=== PATIENT | male | born 1950 | race Caucasian/White ===

== ENCOUNTER 2022-12-03 16:50 | Emergency (ER) | payer MEDICARE, OTHER ==
[~2022-12-03] VITALS: Ht 182.9 cm; Wt 98.6 kg
[2022-12-03 18:33] LABS: BASOPHILS % (AUTO) 0.1 % (0-1); EOSINOPHILS % (AUTO) 0.3 % (0-6); HEMATOCRIT 39.4 % (42.0-52.0); HEMOGLOBIN 13.3 g/dl (14.0-17.9); LYMPHOCYTES # (AUTO) 0.6 X10'3 (1.1-4.8); LYMPHOCYTES % (AUTO) 5.7 % (21-51); MEAN CORPUSCULAR HGB CONC 33.9 g/dL (33.0-36.5); MEAN CORPUSCULAR VOLUME 88.5 FL (78-98); MEAN PLATELET VOLUME 7.1 FL (7.4-10.4); MONOCYTES # (AUTO) 0.9 X10'3 (0-0.9); MONOCYTES % (AUTO) 8.4 % (2-12); NEUTROPHILS # (AUTO) 9.1 X10'3 (1.8-7.7); NEUTROPHILS % (AUTO) 85.5 % (42-75); PLATELET COUNT 286 X10'3 (140-440); RED BLOOD COUNT 4.45 X10'6 (4.70-6.10); RED CELL DISTRIBUTION WIDTH 15.5 % (11.5-14.5); WHITE BLOOD COUNT 10.6 X10'3 (4.5-11.0)
[2022-12-03 18:47] LABS: ALANINE AMINOTRANSFERASE 20 U/L (12-78); ALBUMIN 3.4 G/DL (3.4-5.0); ALBUMIN/GLOBULIN RATIO 0.8 (1.1-1.5); ALKALINE PHOSPHATASE 90 IU/L (46-116); ANION GAP 8 (8-16); ASPARTATE AMINO TRANSFERASE 17 U/L (10-37); BILIRUBIN,TOTAL 2.1 MG/DL (0.1-1.0); BLOOD UREA NITROGEN 16 MG/DL (7-18); BUN/CREATININE RATIO 13.1 (5.4-32.0); CALCIUM 9.2 MG/DL (8.5-10.1); CHLORIDE 101 MMOL/L (99-107); CREATININE 1.22 MG/DL (0.60-1.10); GLUCOSE 177 MG/DL (70-104); MAGNESIUM 2.1 MG/DL (1.5-2.4); POTASSIUM 3.9 MMOL/L (3.5-5.1); SODIUM 134 MMOL/L (135-145); TOTAL CARBON DIOXIDE 25.5 MMOL/L (24-32); TOTAL PROTEIN 7.9 G/DL (6.4-8.2); eGFR 58 ML/MIN
[2022-12-03 18:59] LABS: C-REACTIVE PROTEIN 19.44 MG/DL (0.0-0.5)
[2022-12-03 19:43] VITALS: BP 143/58
[2022-12-03] MEDS ORDERED: DILT-35 PO (19:43)
[2022-12-03] MEDS ORDERED: MONT10TA21 PO (19:43)
[2022-12-03] MEDS ORDERED: ATOR40TA71 PO (19:43)
[2022-12-03 19:47] LABS: CLARITY,URINE SLIGHTLY CLOUDY (Clear); GLUCOSE, URINE 100 mg/dl (Neg); KETONES,URINE TRACE mg/dl (Neg); LEUKOCYTE ESTERASE ,URINE NEGATIVE (Neg); NITRITES, URINE NEGATIVE (Neg); OCCULT BLOOD,URINE NEGATIVE (Neg); PROTEIN,URINE 30 mg/dl (Neg)
[2022-12-03 19:51] LABS: COLOR,URINE DARK YELLOW (Yellow); UA COLLECTION TYPE URINAL
[2022-12-03 19:54] LABS: BACTERIA,URINE FEW /HPF (Neg); CAL OXALATE CRYSTALS 4+ /HPF (NEGATIVE); RBC,URINE 0-2 /HPF (0-2); SQUAMOUS EPITHELIAL CELL,UR FEW /LPF (FEW); TRANSITIONAL EPI CELLS,URINE FEW /HPF; WBC,URINE 0-4 /HPF (0-4)
[2022-12-03 19:56] LABS: FINE GRANULAR CAST 0-3 /LPF (NEGATIVE)
--- NOTE | 2022-12-03 23:57 | NUR ---
REPORT CALLED TO [facility] GREGORY BHAKTA AWAITING REACH TRANSPORT
[2022-12-04] MEDS ORDERED: diphenhydrAMINE 25mg capsule PO ONE (00:15)
--- NOTE | 2022-12-04 01:12 | NUR ---
REACH TX AT BEDSIDE. REPORT GIVEN
--- NOTE | 2022-12-04 01:39 | NUR ---
[facility] [place] CALLED AUN UPDATED TX INFO. PT IN ROUT.
== END 2022-12-04 01:40 | disposition short-term general hospital (02) ==
LOC: ER 16:51
DX: M00.9 Pyogenic arthritis, unspecified (principal); Z20.822 Contact with and (suspected) exposure to COVID-19; M25.561 Pain in right knee; Z79.899 Other long term (current) drug therapy
CPT/HCPCS: 36415; 73560; 80053; 81001; 83605; 83735; 84145; 85025; 85651; 86140; 87040; 87077; 87186; 87811; 99285; Q0163; 99284; A6449

== ENCOUNTER 2024-07-21 09:27 | Day surgery (SDC) | payer MEDICARE, OTHER ==
[2024-07-17 09:29] LABS: BASOPHILS # (AUTO) 0.1 X10'3 (0-0.2); BASOPHILS % (AUTO) 1.2 % (0-1); EOSINOPHILS # (AUTO) 0.2 X10'3 (0-0.9); EOSINOPHILS % (AUTO) 3.8 % (0-6); HEMATOCRIT 40.2 % (42.0-52.0); HEMOGLOBIN 13.3 g/dl (14.0-17.9); LYMPHOCYTES # (AUTO) 1.4 X10'3 (1.1-4.8); LYMPHOCYTES % (AUTO) 26.7 % (21-51); MEAN CORPUSCULAR HGB CONC 33.1 g/dL (33.0-36.5); MEAN CORPUSCULAR VOLUME 87.7 FL (78-98); MEAN PLATELET VOLUME 6.8 FL (7.4-10.4); MONOCYTES # (AUTO) 0.4 X10'3 (0-0.9); NEUTROPHILS # (AUTO) 3.1 X10'3 (1.8-7.7); NEUTROPHILS % (AUTO) 60.3 % (42-75); PLATELET COUNT 275 X10'3 (140-440); RED BLOOD COUNT 4.58 X10'6 (4.70-6.10); RED CELL DISTRIBUTION WIDTH 15.5 % (11.5-14.5); WHITE BLOOD COUNT 5.1 X10'3 (4.5-11.0)
[2024-07-17 09:45] LABS: APTT 26 SECONDS (22-32); PROTHROMBIN TIME 10.8 SECONDS (9.0-12.0)
[2024-07-17 09:49] LABS: ALBUMIN 3.5 G/DL (3.4-5.0); ANION GAP 8 (8-16); BLOOD UREA NITROGEN 23 MG/DL (7-18); BUN/CREATININE RATIO 27.7 (10.0-20.0); CALCIUM 9.1 MG/DL (8.5-10.1); CHLORIDE 104 MMOL/L (99-107); CHOL/HDL RATIO 1.8 (0.00-4.99); CHOLESTEROL 114 MG/DL (0-200); CREATININE 0.83 MG/DL (0.60-1.10); GLUCOSE 108 MG/DL (70-104); HDL CHOLESTEROL 65 MG/DL (35-60); LDL CHOLESTEROL 46 MG/DL (50-100); SODIUM 139 MMOL/L (135-145); TOTAL CARBON DIOXIDE 27.2 MMOL/L (24-32); TRIGLYCERIDES 33 MG/DL (20-135); eGFR 90 ML/MIN
[~2024-07-21] VITALS: Ht 182.9 cm; Wt 103.4 kg
[2024-07-21] VITALS (8 sets, daily range): BP systolic 127–146; BP diastolic 53–84; PULSE 48–74; RESP 14–16; TEMP 97.9; O2SAT 95–97
[~2024-07-21 09:27] MED LIST: ATOR40TA71 PO; DILT-35 PO; MONT-47 PO
[2024-07-21] MEDS ORDERED: DILT120C88 PO (09:45)
[2024-07-21] MEDS ORDERED: DOXY100T2 PO (09:46)
[2024-07-21] MEDS ORDERED: LORazepam 0.5 MG tablet PO PRN (09:50)
[2024-07-21] MEDS: normal saline 1,000 ML IV SCH (10:48)
[2024-07-21] MEDS: diphenhydrAMINE 25mg capsule PO PRN (10:48)
[2024-07-21] MEDS ORDERED: fentaNYL/PF 50MCG/1 ML 2ML syringe ONE (11:46)
[2024-07-21] MEDS ORDERED: verapamil 2.5 mg/ml inj IV ONE (11:46)
[2024-07-21] MEDS ORDERED: midazolam 1 mg/ML 2ml injection ONE (11:46)
[2024-07-21] MEDS ORDERED: heparin 1,000unit/ml 10ml vial 10 ML ONE (11:46)
[2024-07-21] MEDS ORDERED: iohexol 350MG/ML 100ml bottle IV ONE (11:46)
[2024-07-21] MEDS ORDERED: LIDOcaine 1% (10mg/ml) 2ml vial ONE (11:46)
[2024-07-21] MEDS ORDERED: nitroGLYCERIN 500mcg/5mL D5W 5 ML IV ONE (11:48)
[2024-07-21] MEDS ORDERED: HYDROcodone/acetaminophen 5mg/325mg tablet PO PRN (14:50)
[2024-07-21] MEDS ORDERED: HYDROcodone/acetaminophen 10/325mg tab PO PRN (14:50)
[2024-07-22 06:21] LABS: ISTAT HGB ART 11.9 g/dl (14.0-17.9); ISTAT Hct ART 35 %PCV (42-52); ISTAT O2 SATURATION ARTERIAL 95 % (95-98); ISTAT SOURCE BLNK
[2024-07-27 08:27] LABS: ISTAT HGB MIX 12.6 g/dl (14.0-17.9); ISTAT Hct MIX 37 %PCV (42-52); ISTAT O2 SATURATION MIX VENOUS 72 % (60-80); ISTAT SOURCE VEN
== END 2024-07-21 16:30 | disposition home or self-care (01) ==
LOC: SSTAY O 09:27
PROVIDERS: ATTEND Student in an Organized Health Care Education/Training Program
DX: I35.0 Nonrheumatic aortic (valve) stenosis (principal); I25.10 Atherosclerotic heart disease of native coronary artery without angina pectoris; I10 Essential (primary) hypertension; E78.00 Pure hypercholesterolemia, unspecified; Z79.899 Other long term (current) drug therapy
CPT/HCPCS: 36415; 80048; 80061; 82803; 85014; 85025; 85610; 85730; 93005; 93456; 99152; 99153; A6258; A6402; C1751; C1894; J1644; J2001; J2250; J3010; J3490; J7030; Q0163; Q9967; Z7610; 93460

== ENCOUNTER 2024-07-31 10:53 | Outpatient (CLI) | payer MEDICARE, OTHER ==
[~2024-07-31 10:53] MED LIST changes: -DILT-35 PO; +DILT120C88 PO; +DOXY100T2 PO; +IODIXANOL 320 MG/ML INFUS..BTL 100ML IV ONE
[2024-07-31 11:28] LABS: BASOPHILS # (AUTO) 0.1 X10'3 (0-0.2); BASOPHILS % (AUTO) 0.8 % (0-1); EOSINOPHILS # (AUTO) 0.2 X10'3 (0-0.9); EOSINOPHILS % (AUTO) 2.9 % (0-6); HEMATOCRIT 38.6 % (42.0-52.0); HEMOGLOBIN 12.8 g/dl (14.0-17.9); LYMPHOCYTES # (AUTO) 1.2 X10'3 (1.1-4.8); LYMPHOCYTES % (AUTO) 18.1 % (21-51); MEAN CORPUSCULAR HEMOGLOBIN 28.9 PG (27.0-31.0); MEAN CORPUSCULAR HGB CONC 33.2 g/dL (33.0-36.5); MEAN CORPUSCULAR VOLUME 87.1 FL (78-98); MEAN PLATELET VOLUME 6.4 FL (7.4-10.4); MONOCYTES # (AUTO) 0.5 X10'3 (0-0.9); NEUTROPHILS # (AUTO) 4.5 X10'3 (1.8-7.7); NEUTROPHILS % (AUTO) 70.2 % (42-75); PLATELET COUNT 291 X10'3 (140-440); RED BLOOD COUNT 4.44 X10'6 (4.70-6.10); RED CELL DISTRIBUTION WIDTH 15.2 % (11.5-14.5); WHITE BLOOD COUNT 6.5 X10'3 (4.5-11.0)
[2024-07-31 11:34] LABS: APTT 25 SECONDS (22-32); PROTHROMBIN TIME 10.8 SECONDS (9.0-12.0)
[2024-07-31 11:42] LABS: ANION GAP 8 (8-16); BLOOD UREA NITROGEN 17 MG/DL (7-18); BUN/CREATININE RATIO 19.1 (10.0-20.0); CALCIUM 9.1 MG/DL (8.5-10.1); CHLORIDE 106 MMOL/L (99-107); CREATININE 0.89 MG/DL (0.60-1.10); GLUCOSE 112 MG/DL (70-104); POTASSIUM 4.6 MMOL/L (3.5-5.1); SODIUM 140 MMOL/L (135-145); TOTAL CARBON DIOXIDE 26.3 MMOL/L (24-32); eGFR 83 ML/MIN
[2024-07-31 11:43] LABS: ALANINE AMINOTRANSFERASE 22 U/L (12-78); ALBUMIN 3.2 G/DL (3.4-5.0); ALBUMIN/GLOBULIN RATIO 0.7 (1.1-1.5); ALKALINE PHOSPHATASE 93 IU/L (46-116); ASPARTATE AMINO TRANSFERASE 19 U/L (10-37); PRO BRAIN NATRIURETIC PEPTIDE 334 PG/ML (0-450); TOTAL PROTEIN 7.6 G/DL (6.4-8.2)
== END 2024-07-31 23:59 | disposition home or self-care (01) ==
LOC: RAD 10:53
PROVIDERS: ATTEND Internal Medicine Cardiovascular Disease
DX: I35.0 Nonrheumatic aortic (valve) stenosis (principal); R06.02 Shortness of breath; I65.29 Occlusion and stenosis of unspecified carotid artery; K82.0 Obstruction of gallbladder; K42.9 Umbilical hernia without obstruction or gangrene
CPT/HCPCS: 36415; 71046; 71275; 74174; 75572; 80053; 83880; 85025; 85610; 85730; Q9967

== ENCOUNTER 2024-09-15 11:49 | Outpatient (CLI) | payer MEDICARE, OTHER ==
[~2024-09-15 11:49] MED LIST changes: -IODIXANOL 320 MG/ML INFUS..BTL 100ML IV ONE
== END 2024-09-15 23:59 | disposition home or self-care (01) ==
LOC: RAD 11:49
PROVIDERS: ATTEND Family Medicine
DX: S89.91XA Unspecified injury of right lower leg, initial encounter (principal); L03.115 Cellulitis of right lower limb; X58.XXXA Exposure to other specified factors, initial encounter; Y93.89 Activity, other specified; Y92.89 Other specified places as the place of occurrence of the external cause; Y99.8 Other external cause status
CPT/HCPCS: 73700

== ENCOUNTER 2024-10-19 15:24 | Emergency (ER) | payer MEDICARE, OTHER ==
[~2024-10-19] VITALS: Ht 182.9 cm; Wt 104.5 kg
[2024-10-19 15:29] VITALS: TEMP 97.8
[2024-10-19] MEDS ORDERED: adenosine 3mg/ml 2ml vial IV ONE ×2 (16:00)
[2024-10-19] MEDS: adenosine 3mg/ml 2ml vial IV ONE (16:28)
[2024-10-19] MEDS: magnesium sulf-water 2g/50mL 50 ML IV ONE (16:57)
[2024-10-19 18:45] VITALS: BP 148/78; PULSE 65; RESP 18; O2SAT 97
== END 2024-10-19 18:48 | disposition home or self-care (01) ==
LOC: ER 15:24
DX: I47.10 Supraventricular tachycardia, unspecified (principal); Z79.899 Other long term (current) drug therapy
CPT/HCPCS: 71045; 93005; 96365; 99291; J7030

== ENCOUNTER 2025-03-18 05:25 | Inpatient (IN) | payer MEDICARE, OTHER ==
--- NOTE | 2025-03-10 10:57 | ELECTROCARDIOGRAPH REPORT ---
[facility] Test Date: 2025-03-10 Test Time: 10:54:48 Pat Name: JUSTO VIGIL Department: PRE/OP CARDIOLOGY Room: Gender: M Link Trainer: ROSA : 1950 Requested By: MARTA BERRY Order Number: [id number] Reading MD: Dr. Tonny Bales Measurements Intervals [place] Rate: 46 P: 46 [place]: 181 QRS: 18 QRSD: 99 T: 17 QT: 445 QTc: 390 Interpretive Statements Sinus bradycardia Probable anteroseptal infarct, old Electronically Signed On 03-11-2025 9:44:[address] Tonny Bales Please click the below link to view image of tracing.
[2025-03-10 11:41] LABS: BASOPHILS # (AUTO) 0.1 X10'3 (0-0.2); BASOPHILS % (AUTO) 1.3 % (0-1); BILIRUBIN,URINE NEGATIVE (Neg); CLARITY,URINE CLEAR (Clear); COLOR,URINE YELLOW (Yellow); EOSINOPHILS # (AUTO) 0.4 X10'3 (0-0.9); EOSINOPHILS % (AUTO) 8.5 % (0-6); GLUCOSE, URINE NEGATIVE (Neg); KETONES,URINE NEGATIVE (Neg); LEUKOCYTE ESTERASE ,URINE NEGATIVE (Neg); LYMPHOCYTES # (AUTO) 1.6 X10'3 (1.1-4.8); MEAN CORPUSCULAR HEMOGLOBIN 27.2 PG (27.0-31.0); MEAN CORPUSCULAR HGB CONC 33.3 g/dL (33.0-36.5); MEAN CORPUSCULAR VOLUME 81.7 FL (78-98); MEAN PLATELET VOLUME 6.8 FL (7.4-10.4); MONOCYTES # (AUTO) 0.4 X10'3 (0-0.9); MONOCYTES % (AUTO) 9.2 % (2-12); NITRITES, URINE NEGATIVE (Neg); OCCULT BLOOD,URINE NEGATIVE (Neg); PRE OP HEMATOCRIT 38.2 % (42.0-52.0); PRE OP HEMOGLOBIN 12.7 g/dL (14.0-17.9); PRE OP PLATELET COUNT 243 X10'3 (140-440); PRE OP WHITE BLOOD COUNT 4.3 10'3 (4.8-10.8); PROTEIN,URINE NEGATIVE (Neg); RED BLOOD COUNT 4.67 X10'6 (4.70-6.10); RED CELL DISTRIBUTION WIDTH 17.3 % (11.5-14.5); UROBILINOGEN,URINE 0.2 E.U/dL (0.2-1.0)
[2025-03-10 11:45] LABS: UA COLLECTION TYPE NON-SPECIFIED
[2025-03-10 11:59] LABS: PRE OP PROTIME 10.5 SECONDS (9.0-12.0)
--- NOTE | 2025-03-10 12:07 | RADIOLOGY REPORT ---
EXAM: DI CHEST,TWO VIEWS CLINICAL HISTORY: Pain COMPARISON: DI CHEST,TWO VIEWS on DOS: 07/31/24 TECHNIQUE: Frontal and lateral view of the chest was obtained FINDINGS: Lines and Tubes: None Lungs: No focal consolidation. Pleura: No effusion. No pneumothorax. Cardiomediastinal contours: Unremarkable Bones: No acute osseous abnormality. IMPRESSION: No acute cardiopulmonary disease.
[2025-03-10 12:08] LABS: ALBUMIN 3.5 G/DL (3.4-5.0); ALBUMIN/GLOBULIN RATIO 0.9 (1.1-1.5); ALKALINE PHOSPHATASE 137 IU/L (46-116); BLOOD UREA NITROGEN 19 MG/DL (7-18); CALCIUM 8.6 MG/DL (8.5-10.1); CHLORIDE 107 MMOL/L (99-107); PRE OP ALT 30 U/L (30-65); PRE OP ANION GAP 6 (8-16); PRE OP AST 26 U/L (10-37); PRE OP BILIRUB, TOTAL 1.2 MG/DL (0.0-1.0); PRE OP GLUCOSE 107 MG/DL (70-104); PRE OP POTASSIUM 4.5 MMOL/L (3.4-5.1); PRE OP SODIUM 140 MMOL/L (135-145); PRO BRAIN NATRIURETIC PEPTIDE 319 PG/ML (0-450); TOTAL CARBON DIOXIDE 26.6 MMOL/L (24-32); TOTAL PROTEIN 7.3 G/DL (6.4-8.2); eGFR 72 ML/MIN
[~2025-03-18] VITALS: Ht 182.9 cm; Wt 101.4 kg
[2025-03-18] VITALS (28 sets, daily range): BP systolic 126–165; BP diastolic 58–93; PULSE 38–59; RESP 10–20; TEMP 97.4–98.3; O2SAT 94–100
[~2025-03-18 05:25] MED LIST changes: +ALBU8HFA INH; +CALC600T14 PO; +CHOL20004 PO; -DOXY100T2 PO; +FISH1CAP15 PO; +GLUC1CAP36 PO; +LACT1CAP65 PO; +MULT-1085 PO; +TURMERIC PO; +UBID300C3 PO; +VITA1CAP PO; +[UNRECOGNIZED DRUG - CODE] PO
[2025-03-18] MEDS: phenylephrine inj 50 MG in normal saline 250ml IV solN IV SCH (05:30)
[2025-03-18] MEDS: nitroPRUSSIDE (NIPRIDE) (200MCG/ML) 100ML Drip IV SCH (05:30)
[2025-03-18] MEDS ORDERED: ondansetron/PF 4mg/2ml inj IV PRN ×3 (05:30→08:15)
[2025-03-18] MEDS: famotidine 20mg tablet PO ONE (06:12)
[2025-03-18] MEDS: mupirocin 2% nasal ointment 1gm UD NS ONE (06:13)
[2025-03-18] MEDS: VANCOMYCIN/H2O 1.5g/300mL PB 300 ML IV ONE (06:13)
[2025-03-18] MEDS: ceFAZolin 2gm/dext,iso 50mL 50 ML IV ONE (06:14)
[2025-03-18] MEDS: aspirin 325mg tablet PO ONE (06:16)
[2025-03-18] MEDS: ringers solution, lacted 1,000 ML IV SCH ×2 (06:19→07:05)
[2025-03-18] MEDS ORDERED: iohexol 350MG/ML 100ml bottle IV ONE (06:40)
[2025-03-18] MEDS ORDERED: LIDOcaine 1% 30ml preserv. free vial ONE (06:40)
[2025-03-18] MEDS ORDERED: heparin 1,000 UNITS/NS 500ml 500 ML ONE (06:54)
[2025-03-18] MEDS ORDERED: morphine 4 MG/ML inj SYRINge IV PRN (07:05)
[2025-03-18] MEDS ORDERED: hydrALAZINE 20mg/ml inj. IV PRN ×2 (07:05→08:15)
[2025-03-18] MEDS ORDERED: labetalol 20mg/4ml (5mg/ml) syringe IV PRN ×2 (07:05→08:15)
[2025-03-18] MEDS ORDERED: morphine 2 MG/ML inj. syringe IV PRN (07:05)
[2025-03-18] MEDS ORDERED: fentaNYL/PF 50MCG/1 ML 2ML syringe IV PRN ×2 (07:05)
[2025-03-18] MEDS ORDERED: MIDAZolam 1 MG/ML 5ML VIAL ONE (07:12)
[2025-03-18] MEDS ORDERED: fentaNYL/PF 50MCG/1 ML 2ML syringe ONE (07:12)
[2025-03-18] MEDS ORDERED: heparin 1,000unit/ml 10ml vial 10 ML ONE ×2 (07:13→07:50)
[2025-03-18] MEDS ORDERED: propofol inj 20 ML IV ONE (07:13)
[2025-03-18] MEDS ORDERED: LIDOcaine 2% (20mg/ml) 5ml vial ONE (07:13)
[2025-03-18] MEDS ORDERED: non-formulary drug (Ubidecarenone (Co Q-10) 1 CAP) PO SCH (08:00)
[2025-03-18] MEDS ORDERED: [UNRECOGNIZED DRUG - OTHER] PO SCH (08:00)
[2025-03-18] MEDS ORDERED: MAGNESIUM CHLORIDE PO SCH (08:00)
[2025-03-18] MEDS ORDERED: protamine sulfate 10mg/ml inj. ONE (08:09)
[2025-03-18] MEDS ORDERED: docusate sod 100mg capsule PO PRN (08:15)
[2025-03-18] MEDS ORDERED: potassium Cl 40MEQ/270ML bag 250 ML IV PRN (08:15)
[2025-03-18] MEDS ORDERED: ALPRAZolam 0.25mg tablet PO PRN (08:15)
[2025-03-18] MEDS ORDERED: proCHLORperazine 10 MG/2 ml inj IV PRN (08:15)
[2025-03-18] MEDS ORDERED: pantoprazole 40mg Tablet.DR PO PRN (08:15)
[2025-03-18] MEDS ORDERED: acetaminophen 325mg tablet PO PRN (08:15)
[2025-03-18] MEDS ORDERED: potassium Cl 20mEq/100mL bag 100 ML IV PRN (08:15)
[2025-03-18] MEDS ORDERED: HYDROcodone/acetaminophen 5mg/325mg tablet PO PRN (08:15)
[2025-03-18] MEDS ORDERED: diphenhydrAMINE 25mg capsule PO PRN (08:15)
[2025-03-18] MEDS ORDERED: potassium Cl 20 mEq SR tablet PO PRN (08:15)
[2025-03-18] MEDS ORDERED: magnesium sulf-water 4G/100mL 100 ML IV PRN (08:15)
[2025-03-18] MEDS ORDERED: magnesium sulf-water 2g/50mL 50 ML IV PRN (08:15)
[2025-03-18] MEDS ORDERED: potassium CL 10mEq/100ml bag 100 ML IV PRN (08:15)
[2025-03-18] MEDS ORDERED: potassium Cl 40MEQ/1/2NS 520ml 520 ML IV PRN (08:15)
--- NOTE | 2025-03-18 08:20 | OPERATIVE REPORT ---
Operative Report Providers to CC CC: SAYDA CANNON MD ~ Date of Procedure: March 18, 2025 Pre-Operative Diagnosis: Severe Aortic Stenosis Post-Operative Diagnosis SAME as PRE-Op Procedure Performed 1. Ultrasound-guided access, bilateral femoral vessels. 2. Bilateral femoral angiography. 3. Ascending aortography. 4. Temporary transvenous pacer to the RV apex. 5. Placement of a 29 mm Reece S3 Resilia valve. Surgeon: Elise Cannon MD Assembler Handbags MD Dr. 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 They underwent MAC anesthesia. Ultrasound was used to guide access to the bilateral femoral vessels, 7-[place] sheath, left femoral artery, 6-[place] sheath, right femoral artery and left femoral vein. Bilateral femoral angiograms were obtained. Heparin was given to maintain an ACT over 250 seconds. Two crisscross Percloses were placed on the right. We upsized to an 8-[place] sheath. Two pigtail catheters placed in the ascending aorta. Ascending aortography done to determine the angle of deployment. Temporary transvenous pacer to the RV apex and confirmed capture. We upsized an 8-[place] sheath to a 16-[place] Reece eSheath on the right. We crossed the aortic valve using a straight stiff exchange length Terumo wire supported by a 6-[place] AL1 catheter. LV AO pressures were recorded. A Cook extra support wire was placed in the left ventricle. A 29 mm Reece S3 Resilia valve was brought to position and under rapid right ventricular pacing was deployed. Post-procedure, there was no AI and no residual . Guidewires and balloons were removed at this time. The temporary pacer was removed. The 16-[place] Reece eSheath was removed and two crisscross Percloses tied with adequate hemostasis. The arterial sheath on the left was removed and a single Perclose tied. The venous sheath on the left was removed and a single Angioseal used for hemostasis. Protamine was given to reverse the effects of heparin. The patient was stable post-procedure. Good pulses in the legs and no evidence of bleeding, transferred to the PACU in stable condition. HEMODYNAMICS: Pre: LV: 166/7 mmHg LVEDP: 24mmHg Ao: 120/57, MAP 83mmHg Post: LV: 149/1 mmHg LVEDP: 18 mmHg Ao: 149/60, MAP 95mmHg RESULTS: 1. Successful placement of a 29 mm Reece S3 Resilia valve, right transfemoral approach, two perclose devices. ASA 81mg QD 2. Hypertension: Resume home BP meds 3. Chronic diastolic heart failure. LVEDP 24mmHg, pBNP < 450. 4. Hyperlipidemia: Resume home meds They will be watched in the recovery area until stable, then transferred to telemetry at that time. ELISE CANNON MD March 18, 2025 08:20
--- NOTE | 2025-03-18 08:40 | ELECTROCARDIOGRAPH REPORT ---
[facility] Test Date: 2025-03-18 Test Time: 08:33:59 Pat Name: JUSTO VIIGL Department: [facility] Patient ID: [id number] Room: [place] [address] Gender: M Aged Or Disabled Carer: : 1950 Requested By: ELISE FERNÁNDEZ Order Number: [id number] Reading MD: Dr. ERICKSON Arriaga Measurements Intervals [place] Rate: 56 P: 58 [place]: 141 QRS: -1 QRSD: 105 T: 9 QT: 428 QTc: 414 Interpretive Statements Sinus bradycardia Abnormal R-wave progression, early transition Minimal ST depression, inferior leads Electronically Signed On 03-18-2025 9:37:[address] ERICKSON Arriaga Please click the below link to view image of tracing.
[2025-03-18] MEDS ORDERED: ALBU18HF2 INH (09:24)
[2025-03-18] MEDS ORDERED: albuterol 2.5 MG/3 ML nebule NEB PRN (09:40)
[2025-03-18] MEDS: normal saline 1000ml 1,000 ML IV SCH (10:45)
[2025-03-18] MEDS: lactobacillus rhamnosus 10,000 MMU CELLS/CAPSULE PO SCH (11:31)
[2025-03-18] MEDS: cholecalciferol (vitamin D3) 1,000 unit (25mcg) tablet PO SCH (11:32)
[2025-03-18] MEDS: multivitamins, therapeutics tablet PO SCH (11:53)
--- NOTE | 2025-03-18 14:48 | CARDIOLOGY REPORT ---
APPROVED REPORT EXAM: Focused, limited intraprocedural transthoracic 2D, spectral and color flow Doppler echocardiogr am during TAVR deployment. Patient Location: [facility] Blood Pressure: 180/90 mmHg Heart Rate: 47 bpm Rhythm: Sinus Bradycardia Indications Severe Aortic Stenosis Hypertension 29 mm Reece Olivier 3 Ultra RESILIA Bioprosthetic TAVR Glass Smoother: Johnathon Cannon MD / Interventionalist: Johnathon Cannon MD and Tan Bernard MD. / Surgeon: Tan Napoles MD. / Device rep: Yuliya STEVE Enriquez Previous echo: 06/23/24 CVC unk 60% EF ; ANNA 0.83 ; grad 74/43 ; peak v 4.29 ; VHD m/m MR tr TR LEFT VENTRICLE LV appears normal in size with mild concentric hypertrophy. Overall systolic function appears normal. LVEF is 65%. RIGHT VENTRICLE RV appears mildly dilated with normal contractility. ATRIA Left atrium is moderately dilated. AORTIC VALVE Trileaflet AV appears heavily calcified with significant stenosis demonstrated by reduced excursion a nd increased transvalvular and ascending aorta turbulance.ANNA is measured at 0.98 cmsq. Peak/mean gra dients of 76/47 mmHG. Peak velocity is measured at 4.35 m/sec. No insufficiency. POST DEPLOYMENT (LOO P: 37): 29 mm Reece Olivier 3 Ultra Resilia bioprosthetic TAVR appears well seated with normal funct ion. Trace paravalvular leak present at 4 o'clock in TTE SAX BASE. ANNA is measured at 4.65 cmsq. Peak / mean gradients of 16 / 8 mmHG. Peak velocity is measured at 2.00 m/sec. MITRAL VALVE MV is thickened with mild annular calcification. Mild mitral regurgitation. TRICUSPID VALVE The tricuspid valve is normal in structure. Trace tricuspid regurgitation. PERICARDIUM Normal pericardium. No effusion. Other Information Study Quality: Adequate
[2025-03-18] MEDS: ceFAZolin 1GM/D5W- ADD-VANTAGE 50 ML IV SCH (16:15)
[2025-03-18] MEDS: sod chloride 0.9% 10ml flush syringe IV SCH (16:19)
[2025-03-18] MEDS: calcium carbonate 500mg tablet PO SCH (20:01)
[2025-03-18] MEDS: vancomycin/NS 1 GM ADD-VANTAGE 250 ML IV SCH (20:01)
[2025-03-18] MEDS: montelukast 10mg tablet PO SCH (20:01)
[2025-03-18] MEDS: atorvastatin 20mg tablet PO SCH (20:02)
[2025-03-18] MEDS: OMEGA-3/DHA/EPA/FISH OIL 1 EACH CAPSULE.DR PO SCH (20:02)
[2025-03-18] MEDS ORDERED: VITAMIN B COMPLEX PO SCH (21:00)
[2025-03-18] MEDS ORDERED: diltiazem CD 120mg capsule (once-daily) PO SCH (21:00)
[2025-03-19 02:00] VITALS: BP 141/54; PULSE 64; RESP 18; TEMP 98.8; O2SAT 96
[2025-03-19 06:00] VITALS: BP 139/66; PULSE 54; RESP 14; TEMP 97.5; O2SAT 97
--- NOTE | 2025-03-19 06:36 | ELECTROCARDIOGRAPH REPORT ---
[facility] Test Date: 2025-03-19 Test Time: 06:33:49 Pat Name: JUSTO VIGIL Department: [facility] 3S Room: [facility] [address] Gender: M Med Asst: : 1950 Requested By: ELISE FERNÁNDEZ Order Number: [id number] Reading MD: Dr. ERICKSON Arriaga Measurements Intervals [place] Rate: 52 P: 47 [place]: 212 QRS: -1 QRSD: 98 T: 0 QT: 419 QTc: 390 Interpretive Statements Sinus rhythm Borderline prolonged MA interval Anteroseptal infarct, old Electronically Signed On 03-19-2025 19:49:[address] ERICKSON Arriaga Please click the below link to view image of tracing.
--- NOTE | 2025-03-19 06:44 | RADIOLOGY REPORT ---
EXAM: DI CHEST,SINGLE VIEW HISTORY: s/p TAVR COMPARISON: DI CHEST,SINGLE VIEW on DOS: 10/19/24 TECHNIQUE: Portable upright AP view of the chest was performed. FINDINGS: No pneumothorax, consolidative infiltrates, or pulmonary edema. The heart is borderline enlarged. IMPRESSION: No acute intrathoracic process.
[2025-03-19 07:00] LABS: BASOPHILS # (AUTO) 0.1 X10'3 (0-0.2); BASOPHILS % (AUTO) 0.9 % (0-1); EOSINOPHILS # (AUTO) 0.2 X10'3 (0-0.9); HEMATOCRIT 37.5 % (42.0-52.0); HEMOGLOBIN 12.5 g/dl (14.0-17.9); LYMPHOCYTES # (AUTO) 1.1 X10'3 (1.1-4.8); LYMPHOCYTES % (AUTO) 20.3 % (21-51); MEAN CORPUSCULAR HEMOGLOBIN 27.1 PG (27.0-31.0); MEAN CORPUSCULAR HGB CONC 33.3 g/dL (33.0-36.5); MEAN CORPUSCULAR VOLUME 81.5 FL (78-98); MEAN PLATELET VOLUME 6.5 FL (7.4-10.4); MONOCYTES # (AUTO) 0.6 X10'3 (0-0.9); MONOCYTES % (AUTO) 11.5 % (2-12); NEUTROPHILS # (AUTO) 3.6 X10'3 (1.8-7.7); NEUTROPHILS % (AUTO) 63.3 % (42-75); PLATELET COUNT 190 X10'3 (140-440); RED BLOOD COUNT 4.61 X10'6 (4.70-6.10); RED CELL DISTRIBUTION WIDTH 17.4 % (11.5-14.5); WHITE BLOOD COUNT 5.6 X10'3 (4.5-11.0)
[2025-03-19] MEDS: aspirin 81mg tab.chew PO SCH (07:11)
[2025-03-19 07:39] LABS: ALANINE AMINOTRANSFERASE 16 U/L (12-78); ALBUMIN/GLOBULIN RATIO 0.9 (1.1-1.5); ALKALINE PHOSPHATASE 115 IU/L (46-116); ANION GAP 7 (8-16); ASPARTATE AMINO TRANSFERASE 23 U/L (10-37); BILIRUBIN,TOTAL 1.6 MG/DL (0.1-1.0); BLOOD UREA NITROGEN 16 MG/DL (7-18); BUN/CREATININE RATIO 15.2 (10.0-20.0); CALCIUM 8.6 MG/DL (8.5-10.1); CHLORIDE 107 MMOL/L (99-107); CREATININE 1.05 MG/DL (0.60-1.10); GLUCOSE 126 MG/DL (70-104); MAGNESIUM 1.9 MG/DL (1.5-2.4); POTASSIUM 4.6 MMOL/L (3.5-5.1); PRO BRAIN NATRIURETIC PEPTIDE 298 PG/ML (0-450); SODIUM 141 MMOL/L (135-145); TOTAL CARBON DIOXIDE 26.8 MMOL/L (24-32); TOTAL PROTEIN 6.5 G/DL (6.4-8.2); eCRCL 65 ML/MIN; eGFR 68 ML/MIN
[2025-03-19 08:54] VITALS: RESP 14; O2SAT 97
[2025-03-19] MEDS ORDERED: ASPI81TA53 PO (10:12)
--- NOTE | 2025-03-19 10:35 | DISCHARGE SUMMARY ---
Discharge Summary Providers to CC CC: SAYDA FERNÁNDEZ MD ~ Discharge Summary Admission Diagnosis: Severe Aortic Stenosis Hospital Course DATE OF ADMISSION: 03/18/2025 DATE OF DISCHARGE: 03/19/2025 Discharge Diagnosis\Comment: Severe Aortic Stenosis status post transcatheter aortic valve replacement Operations\Procedures: 1. Ultrasound-guided access, bilateral femoral vessels. 2. Bilateral femoral angiography. 3. Ascending aortography. 4. Temporary transvenous pacer to the RV apex. 5. Placement of a 29 mm Reece S3 Resilia valve. Consultants: None Complications: None Condition on DC: Stable New Medications: Aspirin (Children's Aspirin) 81 Mg Tab.chew 81 MG PO Q24H@0830 for 90 Days, #90 TAB.CHEW Continued Medications: Albuterol Sulfate (Ventolin Hfa) 90 Mcg Hfa.aer.ad 2 PUFFS INH Q4HPRN PRN for wheezing for 30 Days, #18 GM 0 Refills Atorvastatin Calcium (Atorvastatin Calcium) 40 Mg Tablet 1 TAB PO QPM for 30 Days, #30 TAB Calcium Carbonate (Calcium) 600 Mg Tablet 1 TAB PO QPM for 30 Days, #30 TAB 0 Refills Cholecalciferol (Vitamin D) 2,000 Unit Tablet 1 TAB PO QPM, 0 Refills Diltiazem Hcl (Cardizem Cd) 120 Mg Cap.sr.24h 1 TAB PO QPM Fish Oil/Dha/Epa (Fish Oil 1,200 Mg Fish Oil) 1,200 Mg-144 Mg-216 Mg Capsule 1 EACH PO QPM, CAP Glucosa Campos 2KCL/Chondroitin Campos (Glucosamine & Chondroitin Cap) 500 Mg-400 Mg Capsule 3 CAP PO DAILY, CAP Lactobacillus Acidophilus (Probiotic) 10 Billion Cell Capsule 1 EACH PO DAILY, CAP [Liquid Tumieric] () 1000 MG PO DAILY Magnesium Chloride (Magnesium Chloride) 2,500 Gm Crystals 1000 MG PO BID Montelukast Sodium (Singulair) 10 Mg Tablet 1 TAB PO QPM for 30 Days, #30 TAB Multivitamin (Multi Vitamin Daily) 1 Each Tablet 1 EACH PO DAILY, TAB Ubidecarenone (Co Q-10) 300 Mg Capsule 1 CAP PO DAILY for 30 Days, #60 CAP 0 Refills Vitamin B Complex (Vitamin B Complex) 1 Each Capsule 1 CAP PO QPM for 30 Days, #30 CAP 0 Refills Discharge Summary: 75yo man with HTN, HLD, HFpEF, Severe symptomatic aortic stenosis admitted after elective TAVR. Underwent TF-TAVR with 29mm Reece S3 Resilia. Did well overnight without issues. --Cont ASA 81mg QD --Educated on endocarditis PPx *Problems/Diagnosis: (1) Symptomatic severe aortic stenosis with normal ejection fraction Status: Chronic Total Time Spent on D/C: Up to 30 Minutes Counseling Services Smoking & Tobacco Cessation: N/A ELISE FERNÁNDEZ MD March 19, 2025 10:34
[2025-03-19 11:00] VITALS: BP 120/58; PULSE 55; RESP 11; TEMP 97.7; O2SAT 97
--- NOTE | 2025-03-19 11:22 | CARDIOLOGY REPORT ---
APPROVED REPORT EXAM: Limited 2D, Doppler, and color-flow Echocardiogram. Patient Location: [address] Blood Pressure: 139/66 mmHg Heart Rate: 65 bpm Rhythm: SINUS Indications ONE DAY FOLLOW-UP TAVR 29 mm Reece Olivier 3 Ultra RESILIA Bioprosthetic TAVR [employer] Officer: Johnathon Cannon MD Previous echo 03/18/25 [facility] EF 65%; ANNA 4.65 cmsq; Peak v 2.0 m/s; Grad 16 / 8 mmHg; mMR; trTR 2D Dimensions IVSd 1.1 (0.7-1.1cm) LVDd 4.8 cm PWd 1.3 (0.7-1.1cm) IVSs 1.6 (0.8-1.2cm) LVDs 3.2 (2.5-4.0cm) PWs 1.5 (0.8-1.2cm) LVOT Diameter 2.90 (1.8-2.4cm) LVEF(%) 62.9 (>50%) FS (%) 34.1 % SV 67.4 ml CO 3.3 L/min M-Mode Dimensions IVSd 1.26 (0.7-1.1cm) LVDd 4.26 (4.0-5.6cm) PWd 1.58 (0.7-1.1cm) IVSs 1.68 cm LVDs 2.74 (2.0-3.8cm) FS (%) 36 % PWs 2.11 cm ESV(Teich) 27.9 ml LVEF(%) 66 (>50%) Aortic Valve AoV Peak Jose Alfredo. 254.3 cm/s AoV VTI 45.9 cm AO Peak GR. 25.9 mmHg AO Mean GR. 13 mmHg LVOT VTI 33.82 cm LVOT Peak Jose Alfredo. 159.0 cm/s ANNA(VTI)/BSA 4.86 cm2/m2 ANNA (VTI) 4.86 cm2 Tricuspid Valve TR P. Velocity 302 cm/s RAP ESTIMATE 10 mmHg TR Peak Gr. 36 mmHg RVSP 46 mmHg LEFT VENTRICLE Normal LV size and function. Mild concentric hypertrophy. LVEF is 65-70%. RIGHT VENTRICLE RV appears mildly dilated with normal systolic function. RVSP is estimated at 46 mmHg. AORTIC VALVE 29 mm Reece Olivier 3 Ultra RESILIA Bioprosthetic TAVR appears well seated with trivial perivalvular leak at 4 o'clock SAX TTE BASE. ANNA is measured at 4.86 cmsq. Peak / mean gradients of 26 / 13 mmHG. Peak velocity is measured at 254 cm/sec. MITRAL VALVE Mild MV annular calcification and leaflet thickening without stenosis. Trace regurgitation. TRICUSPID VALVE TV appears structurally normal with mild regurgitation. PERICARDIUM Normal pericardium. No effusion. Other Information Study Quality: Adequate Conclusion Normal LV size and function. Mild concentric hypertrophy. LVEF is 65-70%. RV appears mildly dilated with normal systolic function. RVSP is estimated at 46 mmHg. 29 mm Reece Olivier 3 Ultra RESILIA Bioprosthetic TAVR appears well seated with trivial perivalvular leak at 4 o'clock SAX TTE BASE. ANNA is measured at 4.86 cmsq. Peak / mean gradients of 26 / 13 mmH G. Peak velocity is measured at 254 cm/sec. Mild MV annular calcification and leaflet thickening without stenosis. Trace regurgitation. TV appears structurally normal with mild regurgitation. Normal pericardium. No effusion.
== END 2025-03-19 12:06 | disposition home or self-care (01) | DRG 267 ==
LOC: PAS IN 05:25 → PCU 3S 12:58
PROVIDERS: ADMIT Internal Medicine Cardiovascular Disease; ATTEND Internal Medicine Cardiovascular Disease
PROC: B41D1ZZ Fluoroscopy of Aorta and Bilateral Lower Extremity Arteries using Low Osmolar Contrast (ICD-10-PCS; 2025-03-18)
PROC: 03HY32Z Insertion of Monitoring Device into Upper Artery, Percutaneous Approach (ICD-10-PCS; 2025-03-18)
PROC: 02RF38Z Replacement of Aortic Valve with Zooplastic Tissue, Percutaneous Approach (ICD-10-PCS; principal; 2025-03-18 06:58)
DX: I35.0 Nonrheumatic aortic (valve) stenosis (principal); Z00.6 Encounter for examination for normal comparison and control in clinical research program; I50.32 Chronic diastolic (congestive) heart failure; I11.0 Hypertensive heart disease with heart failure; E78.5 Hyperlipidemia, unspecified; Z88.1 Allergy status to other antibiotic agents
CPT/HCPCS: 33361; 36415; 71045; 71046; 76937; 80053; 81003; 82948; 83735; 83880; 85025; 85347; 85610; 85730; 86885; 86900; 86901; 86920; 87081; 93005; 93308; A4618; A6258; A6449; C1756; C1760; C1769; C1894; G0378; J0690; J1644; J2003; J2250; J2371; J2704; J2720; J3010; J3370; J3372; J3490; J7030; J7040; J7050; J7120; Q9967